=== PATIENT | female | born 1950 | race Caucasian/White ===

== ENCOUNTER → 2021-03-31 11:47 | Outpatient (CLI) | payer MEDICARE, OTHER, SELFPAY ==
[2021-03-31 13:31] LABS: COVID19 -Nasal RAPID Negative (Negative)
== END ==
PROVIDERS: PCP Nurse Practitioner; Visit Provider Obstetrics & Gynecology
DX: Z20.822 Contact with and (suspected) exposure to COVID-19 (principal); Z01.812 Encounter for preprocedural laboratory examination
CPT/HCPCS: 87635; C9803

== ENCOUNTER 2021-04-01 07:26 | Day surgery (SDC) | payer MEDICARE, OTHER, SELFPAY ==
[2021-03-29 07:23] VITALS: BMI 35.3
--- NOTE | 2021-04-01 | PATH_ITS ---
[facility] Accession Number: [id number] . 01 Material submitted: . endometrium - ENDOMETRIAL CURETTINGS AND POLYP . 02 Diagnosis: Endometrial Curettings and Polyp: Polypoid portions of endometrial tissue with features of cystic atrophy; negative for glandular hyperplasia, cytologic atypia or malignancy. Small, detached fragments of endometrial tissue, weakly proliferative, and abundant blood. There is no evidence of glandular hyperplasia, cytologic atypia, or malignancy in these very scant tissue fragments. MRV 04/05/2021 1311 Local . 02 Electronically signed: . Ana Forbes MD, Pathologist NPI- [id number] . 01 Gross description: . ENDOMETRIAL CURETTINGS AND POLYP: Received in formalin are multiple fragment(s) of cullen, soft tissue measuring 1.5 x 1.5 x 0.6 cm in aggregate submitted entirely in 1 cassette(s) /OMNSE 04/02/2021 0223 Local . 02 Pathologist provided ICD-10: N95.0, N94.89 . 02 CPT . 905431 Performed at: 01 [facility] [address], [place], [place] [id number] MD Akin Lozoya MD Phone: [phone] Performed at: 02 [facility] [address] [place], [place] [id number] MD Gunjan Petersen MD Phone: [phone]
[2021-04-01 08:06] VITALS: BP 182/76; PULSE 53; RESP 20; TEMP 36.4; O2SAT 97; BMI 35.3
[2021-04-01] MEDS: LACTATED RINGERS 1,000 ML 42 ML IV (08:17)
--- NOTE | 2021-04-01 08:29 | PM.HP.1 ---
History of Present Illness History of Present Illness Date Patient Seen: 04/01/21 Time Patient Seen: 08:29 Chief complaint: SDC Narrative: Patient is a 71-year-old 4 para 3 with postmenopausal bleeding, and endometrial hyperplasia. She presents for a D&C hysteroscopy with possible polypectomy. Patient History Medical History (Updated 02/17/21 @ 22:02 by Jayla Larios) Chicken pox Chronic back pain COPD (chronic obstructive pulmonary disease) Coronary artery disease Diabetes Hearing loss Mumps Rubella Shoulder pain (~2014) Sleep apnea Surgical History (Updated 12/29/20 @ 20:24 by Peggy Angel MD) H/O heart bypass surgery H/O tubal ligation History of cholecystectomy History of tonsillectomy and adenoidectomy [place] teeth extracted Family & Social History Family History (Updated 02/17/21 @ 22:03 by Jayla Larios) Father Diabetes mellitus History of heart disease Hypertension Mother Diabetes mellitus History of heart disease Hypertension Social History: household members spouse Tobacco & Substance use: Smoking Status Never smoker alcohol intake never Substance Use Type does not use Meds Home Medications and Allergies Home Medications Medication Instructions Recorded Confirmed Type blood sugar diagnostic (Freestyle 12/29/20 12/29/20 History [employer]) bumetanide 2 mg tablet 2 mg PO DAILY 12/29/20 04/01/21 History cyanocobalamin (vitamin B-12) 1,000 mcg PO DAILY 12/29/20 04/01/21 History 1,000 mcg capsule dabigatran etexilate 150 mg 150 mg PO DAILY 12/29/20 04/01/21 History capsule (Pradaxa) dulaglutide 1.5 mg/0.5 mL 1.5 mg SUBCUT QWEEK 12/29/20 04/01/21 History subcutaneous pen injector (Trulicity) insulin glargine 100 unit/mL 10 unit SUBCUT QPM 12/29/20 04/01/21 History subcutaneous solution (Lantus U-100 Insulin) insulin regular human 100 unit/mL 20 unit SUBCUT BID 12/29/20 04/01/21 History injection solution (Novolin R Regular U-100 Insulin) isosorbide mononitrate 120 mg 120 mg PO DAILY 12/29/20 04/01/21 History tablet,extended release 24 hr metformin 850 mg tablet 850 mg PO DAILY 12/29/20 03/29/21 History ramipril 10 mg capsule 10 mg PO DAILY 12/29/20 04/01/21 History rosuvastatin 10 mg tablet (Crestor) 10 mg PO DAILY 12/29/20 04/01/21 History metoprolol tartrate 25 mg tablet mg 04/01/21 History potassium 20 mg chewable tablet mg PO 04/01/21 History Allergies Allergy/AdvReac Type Severity Reaction Status Date / Time turmeric Allergy Intermediate Verified 04/01/21 07:57 clopidogrel Allergy Mild Verified 04/01/21 07:57 neeraj AdvReac Mild Verified 04/01/21 07:57 Exam Vital Signs (past 8 hours): - 04/01/21 08:06 Temperature 97.6 F Pulse Rate 53 L Respiratory Rate 20 Blood Pressure 182/76 H Pulse Oximetry 97 Oxygen Delivery Method Room Air Narrative Exam Narrative: HEENT: No thyromegaly, no anterior cervical or supraclavicular lymphadenopathy. Lungs:Clear to auscultation bilaterally, no wheezes. Cardiovascular: Regular rate and rhythm, no murmurs, rubs, or gallops. Abdomen: Well-healed laparoscopy No hepatosplenomegaly. No masses palpable. External genitalia: Normal Vagina: Normal Cervix: Normal Bimanual exam: 8 Week size anteverted uterus. Mobile. Assessment & Plan Assessment & Plan narrative: Assessment: 71-year-old 4 para 3 with postmenopausal bleeding and endometrial hyperplasia Plan: D&C hysteroscopy with possible polypectomy The risks, benefits, and alternatives to the procedure were explained to the patient. The risks including bleeding, infection and uterine perforation. She understands these risks and agrees to proceed. A full par Q was held and consent form was signed. COVID-19 COVID-19 status: Negative Result date/Date tested (Pos, Neg/Pending): 03/31/21 Time Spent With Patient Time with patient: less than 30 minutes Critical Care time: I spent a total of [] minutes of critical care time on this patient's care today; this time is exclusive of procedural time.
--- NOTE | 2021-04-01 08:31 | PM.PREOP ---
Pre-operative Note COVID-19 COVID-19 status: Negative Result date/Date tested (Pos, Neg/Pending): 03/31/21 Interval Note History & Physical reviewed/Exam performed by Physician: Yes Changes to H&P: No H&P completed within 30 days and has changed as indicated here:: 04/01/21
--- NOTE | 2021-04-01 09:09 | SUR.OPER ---
Lithotomy on padded OR bed, head on pillow, arms secured on padded arm boards at <90 degrees abduction. Legs secured in padded yellow fins stirrups.
--- NOTE | 2021-04-01 09:26 | PM.GYNOP.1 ---
Operative Date/Time/Diagnoses Date of procedure: 04/01/21 Time of procedure: 09:26 Pre-op diagnosis: Postmenopausal bleeding Endometrial hyperplasia that is suspicious for a polyp Post-op diagnosis: same Procedure & Clinicians Procedure: Procedures Operation Date: 04/01/21 08:45 Actual Procedure Side Surgeon p Hysteroscopy D&C w/resection of endometrial polyp Peggy Angel MD Indications: Postmenopausal bleeding Endometrial hyperplasia suspicious for a polyp Surgeon: Peggy Angel Anesthesia Type: General (LMA) Operative Notes Findings: 6 week size anteverted uterus Both fallopian tube ostia observed Endometrial polyp arising from the right mid uterus Closure Type: not applicable Specimen(s): endometrial curettings and endometrial polyp Estimated blood loss (mL): 5 Blood products transfused: none Procedure in detail: After informed consent was obtained, the patient was taken to the operating room where she was placed in the dorsal supine position. After adequate LMA general anesthesia was achieved, she was placed in the dorsal lithotomy position, and prepped and draped in the usual sterile fashion. A time-out was performed. A bivalve speculum was placed into the vagina and the anterior lip of the cervix grasped with a single-tooth tenaculum. Cervical os was sequentially dilated to the # 8 Hegar dilator. The hysteroscope passed easily into the endometrial cavity. Both fallopian tube ostia were observed. There was a small polyp arising from the right mid uterus. The hysteroscope was removed. The fluid was changed to sorbitol. The cervix was further dilated to the # 9 Hegar dilator. The resectoscope passed easily into the endometrial cavity. Polyp was resected in 2 pieces with settings at 80 cautery and 60 cut. The resectoscope was removed from the uterus. Gentle sharp curettage was performed yielding minimal tissue. The single-tooth tenaculum was removed from the anterior lip of the cervix. The bivalve speculum was removed from the vagina. Sponge, lap, and instrument counts were correct x2. Patient tolerated the procedure well, and was taken to PACU in stable condition. Complications: none Post-operative Condition: stable Disposition: PACU Plan for aftercare: Home after recovery
[2021-04-01 09:29] VITALS: BP 150/75; PULSE 71; RESP 7; TEMP 36.2; O2SAT 96
[2021-04-01 09:34] VITALS: BP 154/68; PULSE 69; RESP 7; O2SAT 96
[2021-04-01 09:39] VITALS: BP 166/74; PULSE 66; RESP 13; O2SAT 96
[2021-04-01 09:50] VITALS: BP 156/70; PULSE 54; RESP 13; TEMP 36.4; O2SAT 97
[2021-04-01] MEDS: ONDANSETRON 4 MG/2 ML INJ IV (09:57)
[2021-04-01 10:15] VITALS: BP 156/65; PULSE 60; RESP 18; TEMP 36.3; O2SAT 99
== END 2021-04-01 10:35 | disposition home or self-care (01) ==
PROVIDERS: PCP Nurse Practitioner; Referring Provider Obstetrics & Gynecology; Visit Provider Obstetrics & Gynecology
PROC: 0UDB8ZZ Extraction of Endometrium, Via Natural or Artificial Opening Endoscopic (ICD-10-PCS; CPT 58558; principal; 2021-04-01 08:45)
DX: N84.0 Polyp of corpus uteri (principal); G47.33 Obstructive sleep apnea (adult) (pediatric); I25.10 Atherosclerotic heart disease of native coronary artery without angina pectoris; E78.5 Hyperlipidemia, unspecified; I10 Essential (primary) hypertension
CPT/HCPCS: 58558; J2405; J2704; J3010